=== PATIENT | male | born 1990 | race Native Hawaiian/Other Pacific Islander ===

== ENCOUNTER 2018-05-06 10:29 | Day surgery (SDC) | payer OTHER ==
[~2018-05-06 10:29] MED LIST: EPINEPHrine 1 MG/ML AMP ONE
[2018-05-06] MEDS ORDERED: ceFAZolin 2 GM/50 ML 2 GM/50 ML BAG IV ONE (10:37)
[2018-05-06] MEDS ORDERED: LACTATED RINGERS 1,000 ML IV ONE ×2 (10:51→14:26)
--- NOTE | 2018-05-06 11:02 | ANESTHESIA ---
Pre-Anesthesia VS, & Labs - Diagnosis Right knee ACL tear - Procedure Right knee arthroscopy with ACL reconstruction, chondroplasty Vital Signs: Temp Pulse Resp BP Pulse Ox 36.2 C L 68 15 145/82 H 99 05/06/18 10:40 05/06/18 10:40 05/06/18 10:40 05/06/18 10:40 05/06/18 10:40 Height 5 ft 10 in Weight (kg) 88.45 kg - NPO >8 hours Home Medications and Allergies Home Medications: Ambulatory Orders No Known Home Medications 05/06/18 Allergies/Adverse Reactions: Allergies Allergy/AdvReac Type Severity Reaction Status Date / Time No Known Drug Allergies Allergy Verified 04/28/18 14:59 Anes History & Medical History - Anesthetic History Anesthesia Complications: reports: No previous complications - Medical History Cardiovascular: reports: None Pulmonary: reports: None Gastrointestinal: reports: None Urinary: reports: None Neuro: reports: None Musculoskeletal: reports: Other Endocrine/Autoimmune: reports: None Blood Disorders: reports: None Skin: reports: None Smoking Status: Former smoker (Quit 7 years ago, uses chewing tobacco) Psychosocial: reports: No issues indicated - Surgical History Eyes Ears Nose Throat (EENT): Other (dental) Orthopedic: Other (right hand) Exam General: Alert, Oriented x3, Cooperative, No acute distress Dental: WNL Mouth Openin Fingerbreadth Neck Mobility: Normal Mallampati classification: II Thyromental Distance: 4-6 cm Respiratory: Lungs clear, Normal breath sounds, No respiratory distress, No accessory muscle use Cardiovascular: Regular rate, Normal S1, Normal S2, No murmurs Mental/Cognitive Status: Alert/Oriented X3, Normal for patient Plan Anesthesia Type: General, Femoral Block (right) Regional Block: Per Surgeon's request for Post Op pain control Consent for Procedure(s) Verified and Reviewed: Yes Code Status: Attempt Resuscitation ASA classification: 1-Healthy patient Is this case an emergency?: No
[2018-05-06] MEDS ORDERED: BUPIVACAINE 0.25%-EPI 1:200000 PF 30 ML VIAL ONE (11:15)
[2018-05-06] MEDS ORDERED: ROPIVACAINE 0.5% PF 20 ML AMPULE ONE (11:16)
[2018-05-06] MEDS ORDERED: ONDANSETRON 4 MG/2 ML VIAL IVP PRN (14:36)
[2018-05-06] MEDS ORDERED: oxyCODONE 5 MG TABLET PO PRN (14:36)
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
[2018-05-06] MEDS ORDERED: MEPERIDINE 50 MG/ML VIAL ONE (14:59)
[2018-05-06] MEDS ORDERED: oxyCODONE 5 MG TABLET ONE (15:39)
[2018-05-06 15:59] VITALS: BP 161/78
== END 2018-05-06 10:30 | disposition home or self-care (01) ==
LOC: SDS 10:29
PROVIDERS: ATTEND Orthopaedic Surgery
PROC: 0LBQ0ZZ Excision of Right Knee Tendon, Open Approach (ICD-10-PCS; 2018-05-06)
PROC: 0SBC4ZZ Excision of Right Knee Joint, Percutaneous Endoscopic Approach (ICD-10-PCS; 2018-05-06)
PROC: 0MRN47Z Replacement of Right Knee Bursa and Ligament with Autologous Tissue Substitute, Percutaneous Endoscopic Approach (ICD-10-PCS; principal; 2018-05-06 11:45)
DX: M23.51 Chronic instability of knee, right knee (principal); M23.91 Unspecified internal derangement of right knee; M23.41 Loose body in knee, right knee
CPT/HCPCS: 29888; A9270; C1713; J0690; J2175; J7120